=== PATIENT | male | born 1960 | race Caucasian/White ===

== ENCOUNTER 2019-05-28 10:46 | Inpatient (IN) | payer BC ==
[~2019-05-28] VITALS: Ht 167.6 cm; Wt 81.2 kg
[2019-05-28 10:55] VITALS: Ht 167.6 cm; Wt 81.2 kg
[2019-05-28 12:15] LABS: PLATELET COUNT 222 x10^3mcL (130-400); RED CELL DISTRIBUTION WIDTH 13.1 % (11.5-14.5)
[2019-05-28 12:21] LABS: CALCIUM 9.1 mg/dL (8.5-10.1); CARBON DIOXIDE 20.5 mmol/L (21-32); CREATININE SERUM 1.9 mg/dL (0.7-1.3); POTASSIUM SERUM 4.7 mmol/L (3.5-5.1)
[2019-05-28 12:26] LABS: BILIRUBIN TOTAL 0.6 mg/dL (0.20-1.00)
[2019-05-28 12:27] LABS: ALBUMIN 2.5 g/dL (3.4-5.0)
[2019-05-28] MEDS ORDERED: JANUVIA25 M1 PO (14:25)
[2019-05-28 14:45] LABS: UA SPECIFIC GRAVITY 1.025 (1.005-1.035); microscopic required? YES; urine erythrocyte 1+ (NEGATIVE)
[2019-05-28 15:47] VITALS: BP 142/64
[2019-05-28 20:02] VITALS: BP 142/64
[2019-05-28 21:17] VITALS: BP 136/64
[2019-05-29 05:56] VITALS: BP 144/69
[2019-05-29 06:56] LABS: PLATELET COUNT 178 x10^3mcL (130-400); RED CELL DISTRIBUTION WIDTH 12.9 % (11.5-14.5)
[2019-05-29 06:59] LABS: ALBUMIN 1.6 g/dL (3.4-5.0); ALKALINE PHOSPHATASE 76 U/L (46-116); ALT/SGPT 30 U/L (16-63); AST/SGOT 24 U/L (15-37); BILIRUBIN TOTAL 0.5 mg/dL (0.20-1.00); CALCIUM 7.9 mg/dL (8.5-10.1); CARBON DIOXIDE 23.9 mmol/L (21-32); CHLORIDE SERUM 107 mmol/L (98-107); CREATININE SERUM 1.3 mg/dL (0.7-1.3); GFR1 > 60 mL/min; GLUCOSE SERUM 135 mg/dL (74-106); MAGNESIUM 2.3 mg/dL (1.8-2.4); POTASSIUM SERUM 4.5 mmol/L (3.5-5.1); SODIUM SERUM 139 mmol/L (136-145)
[2019-05-29 07:36] VITALS: BP 139/67
[2019-05-29 08:22] LABS: BASOPHIL % 0 % (0-2)
[2019-05-29 11:47] VITALS: BP 152/77
[2019-05-29 15:42] VITALS: BP 143/81
[2019-05-29 20:56] VITALS: BP 133/73
[2019-05-30 04:27] VITALS: BP 150/68
[2019-05-30 06:35] LABS: BASOPHIL % 0.4 % (0-2); PLATELET COUNT 189 x10^3mcL (130-400); RED CELL DISTRIBUTION WIDTH 13.3 % (11.5-14.5)
[2019-05-30 06:51] LABS: CALCIUM 8.3 mg/dL (8.5-10.1); CARBON DIOXIDE 23.6 mmol/L (21-32); CHLORIDE SERUM 106 mmol/L (98-107); CREATININE SERUM 1.1 mg/dL (0.7-1.3); GFR1 > 60 mL/min; GLUCOSE SERUM 187 mg/dL (74-106); POTASSIUM SERUM 4.2 mmol/L (3.5-5.1); SODIUM SERUM 139 mmol/L (136-145)
[2019-05-30 10:49] VITALS: BP 152/77
[2019-05-30 12:08] VITALS: BP 152/77
[2019-05-30] MEDS ORDERED: PROSUD INH (15:39)
[2019-05-30] MEDS ORDERED: COZ50 PO (15:39)
[2019-05-30] MEDS ORDERED: OSELTAMIVIR PHO30 MG PO (15:39)
[2019-05-30] MEDS ORDERED: MUCINEX600 MG PO (15:39)
[2019-05-30] MEDS ORDERED: LEVAQUIN500 M1 PO (15:39)
[2019-05-30] MEDS ORDERED: COL100 PO (15:39)
[2019-05-30] MEDS ORDERED: FLOMAX0.4 MG PO (16:04)
[2019-05-30] MEDS ORDERED: GLYBURIDE5 MG PO (16:04)
[2019-05-30] MEDS ORDERED: JANUMET PO (16:04)
[2019-05-30] MEDS ORDERED: ATORVASTATIN CA40 M1 PO (16:04)
[2019-05-30] MEDS ORDERED: MEDDP PO (16:10)
== END 2019-05-30 17:01 | disposition home or self-care (01) | DRG 189 ==
LOC: ED 10:46 → DU 14:13
PROVIDERS: Emergency Medicine; ADMIT Internal Medicine
DX: J96.01 Acute respiratory failure with hypoxia (principal); N17.0 Acute kidney failure with tubular necrosis; I10 Essential (primary) hypertension; J11.1 Influenza due to unidentified influenza virus with other respiratory manifestations; E78.5 Hyperlipidemia, unspecified; E11.65 Type 2 diabetes mellitus with hyperglycemia; E86.0 Dehydration; Z79.899 Other long term (current) drug therapy; Z23 Encounter for immunization
CPT/HCPCS: 36600; 82962; 87804; 90658; 90732; 94150; G0378; J0696; J1815; J1885; J1956; J2405; J2920; J7030; J7620; Q0092